=== PATIENT | male | born 1940 | race Caucasian/White ===

== ENCOUNTER 2017-07-23 05:10 | Outpatient (CLI) | payer MEDICARE, OTHER ==
[2017-07-22 10:33] LABS: BASOPHILS 0.2 % (0-2); EOSINOPHILS 1.2 % (0-7); HEMATOCRIT 45.5 % (42.0-54.0); HEMOGLOBIN 15.8 g/dL (13.5-17.5); IMMATURE GRANULOCYTES 0.3 % (0-5); LYMPHOCYTES 13.2 % (15-50); MCH 32.4 pg (26.0-34.0); MCHC 34.7 g/dL (31.0-37.0); MCV 93.4 fL (80.0-100.0); MONOCYTES 5.8 % (2-11); NEUTROPHILS 79.3 % (40-80); PLATELET COUNT 222 10x3/uL (130-400); RBC 4.87 10x6/uL (4.20-6.10); RDW 12.7 % (11.5-14.5); WBC 11.9 10x3/uL (4.8-10.8)
[2017-07-22 10:41] LABS: INR 0.97 (0.85-1.17); PROTIME 12.5 SECONDS (11.6-15.0)
[2017-07-22 10:42] LABS: APTT 29.9 SECONDS (22.8-39.4)
[~2017-07-23] VITALS: Ht 188 cm; Wt 111.1 kg
[~2017-07-23 05:10] MED LIST: ASPIRIN EC81 M1 PO; ATIVAN2 MG PO; BYSTOLIC10 MG PO; CO Q-10100 MG; COZAAR50 MG PO; FLUTICASONE PRO16 GM NASAL; MAGNESIUM OXID250 MG PO; PROBIOTIC BLEN1 EACH PO; PROTONIX40 MG PO; VITAMIN B-122500 MCG PO; VITAMIN D31000 UNI2 PO; ZOCOR20 MG PO
[2017-07-23 06:02] VITALS: BP 129/70; Ht 188 cm; Wt 111.1 kg
== END 2017-07-24 00:01 | disposition home or self-care (01) ==
LOC: D.OPS 05:10 → EDSTATUS 08:00 → D.PAN 08:00 → D.OPS 08:00 → D.PAN 10:25 → D.OPS 07-24 00:01
PROVIDERS: Anesthesiology
DX: M75.40 Impingement syndrome of unspecified shoulder (principal); Z53.09 Procedure and treatment not carried out because of other contraindication; Z01.812 Encounter for preprocedural laboratory examination

== ENCOUNTER 2019-11-21 07:27 | Inpatient (IN) | payer MEDICARE, OTHER ==
[~2019-11-21] VITALS: Ht 188 cm; Wt 114.1 kg
[2019-11-21 07:30] VITALS: BP 128/68
[2019-11-21] MEDS ORDERED: PACERONE200 MG PO (07:39)
[2019-11-21] MEDS ORDERED: PREDNISONE20 MG PO (07:39)
[2019-11-21] MEDS ORDERED: BACTRIM 400-801 TAB PO (07:40)
[2019-11-21] MEDS ORDERED: COLCRYS0.6 MG PO (07:40)
[2019-11-21] MEDS ORDERED: TOPROL XL25 MG PO (07:41)
[2019-11-21 08:13] LABS: ANION GAP 14.7 mmol/L (8-16); CALCIUM 8.4 mg/dL (8.5-10.1); CARBON DIOXIDE 26.6 mmol/L (21.0-32.0); CREATININE - SERUM 1.4 mg/dL (0.6-1.3); POTASSIUM - SERUM 4.3 mmol/L (3.5-5.1)
[2019-11-21 08:14] LABS: APTT 35.6 SECONDS (22.8-39.4); INR 2.21 (0.85-1.17); PROTIME 24.2 SECONDS (11.6-15.0)
[2019-11-21 08:15] LABS: D-DIMER-QUANTITATIVE 0.45 ug/mLFEU (0.20-0.54)
[2019-11-21 08:16] LABS: BASOPHILS 0.1 % (0-2); EOSINOPHILS 1.1 % (0-7); HEMATOCRIT 44.8 % (42.0-54.0); HEMOGLOBIN 14.2 g/dL (13.5-17.5); IMMATURE GRANULOCYTES 0.3 % (0-5); LYMPHOCYTES 7.5 % (15-50); MCHC 31.7 g/dL (31.0-37.0); MCV 94.7 fL (80.0-100.0); MEAN PLATELET VOLUME 9.6 fL (7.4-10.4); MONOCYTES 7.1 % (2-11); NEUTROPHILS 83.9 % (40-80); PLATELET COUNT 188 10x3/uL (130-400); RBC 4.73 10x6/uL (4.20-6.10); RDW 15.5 % (11.5-14.5); WBC 12.9 10x3/uL (4.8-10.8)
[2019-11-21 08:26] LABS: ALBUMIN 3.1 g/dL (3.4-5.0); BILIRUBIN - TOTAL 0.46 mg/dL (0.2-1.3); C-REACTIVE PROTEIN 5.5 mg/dL (0.0-0.9); MAGNESIUM - SERUM 2.2 mg/dL (1.8-2.4); TROPONIN-I 0.031 ng/mL (0.000-0.060)
[2019-11-21 08:30] VITALS: BP 114/65
[2019-11-21 10:00] VITALS: BP 137/59
--- NOTE | 2019-11-21 10:17 | NUR ---
URINE SPECIMEN SENT TO LAB
[2019-11-21 10:32] LABS: BILIRUBIN NEGATIVE (NEGATIVE); KETONE NEGATIVE (NEGATIVE); NITRITE NEGATIVE (NEGATIVE); UROBILINOGEN NORMAL mg/dL (< 2)
[2019-11-21 10:41] LABS: AMORPHOUS SEDIMENT <1+ LPF (NONE SEEN); BACTERIA FEW HPF (NONE SEEN); EPITHELIAL CELLS 0-5 /hpf (0-5); WHITE CELLS - URINE 0-5 HPF (0-1)
--- NOTE | 2019-11-21 11:02 | NUR ---
CHANDNITHROMAX COMPLETED. 250ML IN.
--- NOTE | 2019-11-21 11:45 | NUR ---
PT IS NOT DIABETIC, DID NOT CHECK BLOOD SUGAR
--- NOTE | 2019-11-21 11:51 | NUR ---
ATTEMPT TO CALL REPORT, NURSE WILL CALL BACK
--- NOTE | 2019-11-21 12:12 | NUR ---
NOTIFIED RT OF SYMBICORT ORDER. WILL GIVE ONCE ON THE FLOOR
--- NOTE | 2019-11-21 12:19 | NUR ---
ATTEMPT TO CALL REPORT. ON HOLD 10 MINUTES, WILL TRY AGAIN.
--- NOTE | 2019-11-21 12:33 | NUR ---
REPORT TO ALONSO MALDONADO
[2019-11-21 12:35] LABS: THYROID STIMULATING HORMONE 0.42 uIU/mL (0.36-3.74)
--- NOTE | 2019-11-21 14:00 | NUR ---
SPOKE WITH JENNA DIANE ABOUT FSBS AND PT NOT BEING DIABETIC. SHE STATES BECAUSE PT IS TAKING STEROIDS. I VERBALIZED UNDERSTANDING.
--- NOTE | 2019-11-21 15:36 | NUR ---
PT COVID NEG.
[2019-11-21 16:17] VITALS: BP 117/59
[2019-11-21 16:20] VITALS: BMI 32.3
[2019-11-21 16:43] VITALS: Ht 188 cm; Wt 114.1 kg
--- NOTE | 2019-11-21 21:00 | NUR ---
PT STATES HE HAS TO TAKE OWN MEDS, BECAUSE HE HAS A SCHDULE HE HAS TO FOLLOW, SPOKE WITH FRANTZ AND TOLD HIM
[2019-11-21 23:15] VITALS: BP 102/67
[2019-11-22 03:03] VITALS: BP 90/51
--- NOTE | 2019-11-22 03:28 | NUR ---
I have reviewed this patient and I concur with the Shift Assessment completed by the Licensed Practical Nurse today this shift.
[2019-11-22 05:50] LABS: BASOPHILS 0.1 % (0-2); EOSINOPHILS 0 % (0-7); HEMOGLOBIN 12.7 g/dL (13.5-17.5); IMMATURE GRANULOCYTES 0.3 % (0-5); LYMPHOCYTES 4.6 % (15-50); MCH 30.1 pg (26.0-34.0); MCHC 31.8 g/dL (31.0-37.0); MCV 94.8 fL (80.0-100.0); MEAN PLATELET VOLUME 9.8 fL (7.4-10.4); MONOCYTES 4.4 % (2-11); NEUTROPHILS 90.6 % (40-80); PLATELET COUNT 169 10x3/uL (130-400); RBC 4.22 10x6/uL (4.20-6.10); RDW 15.6 % (11.5-14.5); WBC 13.8 10x3/uL (4.8-10.8)
[2019-11-22 06:11] VITALS: BP 117/73
[2019-11-22 06:28] LABS: ALBUMIN 2.7 g/dL (3.4-5.0); ANION GAP 11.9 mmol/L (8-16); BILIRUBIN - TOTAL 0.24 mg/dL (0.2-1.3); CALCIUM 8.4 mg/dL (8.5-10.1); CREATININE - SERUM 1.4 mg/dL (0.6-1.3); POTASSIUM - SERUM 4.9 mmol/L (3.5-5.1); PROTEIN - SERUM 6.4 g/dL (6.4-8.2)
[2019-11-22 07:00] VITALS: BP 102/65
[2019-11-22 10:30] VITALS: BP 107/70
--- NOTE | 2019-11-22 11:18 | NUR ---
SPOKE WITH DR. WEBSTER ABOUT PATIENT HAVING OWN MEDICATIONS IN ROOM AND TAKING THEM PRESCRIBED BY [facility]. I WAS TOLD THAT IT WAS OK FOR HIM TO BE TAKING HIS OWN MEDICATIONS INSTEAD OF US SENDING THEM TO PHARMACY TO HAVE THEM LABELED.
--- NOTE | 2019-11-22 13:18 | NUR ---
CAME TO CHECK ON PATIENT, HE IS A CURRENT CARDIAC REHAB PATIENT. WILL CONTINUE TO FOLLOW HIS CARE AND PROGRESS TO SEE WHEN PATIENT CAN RETURN TO CARDIAC REHAB.
[2019-11-22 15:00] VITALS: BP 122/75
--- NOTE | 2019-11-22 19:00 | NUR ---
REPORT RECEIVED, WILL CONTINUE POC. PATIENT IS AAOX4, SITTING UP IN CHAIR. NO S/S OF DISTRESS OBSERVED, RR EVEN AND UNLABORED ON ROOM AIR. PIV TO LT AC AND RT FA, BOTH SL. PATIENT DENIES NEEDS AT THIS TIME. CL IN REACH, BED LOCKED AND LOWERED. WILL CTM.
[2019-11-22 20:00] VITALS: BP 127/73
[2019-11-23] VITALS: BP 121/84
[2019-11-23 04:00] VITALS: BP 124/61
[2019-11-23 05:37] LABS: BASOPHILS 0 % (0-2); EOSINOPHILS 0.6 % (0-7); HEMATOCRIT 43.1 % (42.0-54.0); HEMOGLOBIN 13.6 g/dL (13.5-17.5); IMMATURE GRANULOCYTES 0.3 % (0-5); LYMPHOCYTES 3.1 % (15-50); MCH 30.2 pg (26.0-34.0); MCHC 31.6 g/dL (31.0-37.0); MCV 95.6 fL (80.0-100.0); MEAN PLATELET VOLUME 10.3 fL (7.4-10.4); MONOCYTES 4.4 % (2-11); NEUTROPHILS 91.6 % (40-80); PLATELET COUNT 187 10x3/uL (130-400); RBC 4.51 10x6/uL (4.20-6.10); RDW 15.7 % (11.5-14.5); WBC 15.8 10x3/uL (4.8-10.8)
[2019-11-23 06:20] LABS: ALBUMIN 2.8 g/dL (3.4-5.0); ANION GAP 12.5 mmol/L (8-16); BILIRUBIN - TOTAL 0.4 mg/dL (0.2-1.3); CALCIUM 8.3 mg/dL (8.5-10.1); CARBON DIOXIDE 26.9 mmol/L (21.0-32.0); CREATININE - SERUM 1.2 mg/dL (0.6-1.3); POTASSIUM - SERUM 4.4 mmol/L (3.5-5.1); PROTEIN - SERUM 6.9 g/dL (6.4-8.2)
--- NOTE | 2019-11-23 07:15 | NUR ---
RECEIVE SHIFT REPORT. SITTING IN CHAIR WITH MULTIPLE BLANKETS SHIVERING AND COUGHING. GAVE WARM BLANKETS AND AN INCENTIVE SPIROMETER TO USE INSTRUCTED. STATES HE WOULD REALLY LIKE TO GO HOME TODAY. WILL CONTINUE PLAN OF CARE AND SAFETY PRECAUTIONS.
[2019-11-23 07:29] VITALS: BP 133/70
[2019-11-23 12:21] VITALS: BP 95/46
[2019-11-23 15:55] VITALS: BP 119/68
--- NOTE | 2019-11-23 16:58 | MORECARE ---
CASE MANAGEMENT DISCHARGE SUMMARY PATIENT: ALDO RICHARD JR UNIT: [id number] ADM DATE: 11/21/19 AGE: 79 : 41 SEX: M ROOM/BED: D.2113 AUTHOR: MAYRA ENCARNACION PHYSICIAN: REFERRING PHYSICIAN: MATILDE CELIS MD DATE OF SERVICE: 11/23/19 Discharge Plan Patient Name: ALDO RICHARD [facility] [facility] 1940 Planned Disposition: Home Anticipated Discharge Date: Discharge Date: Expected LOS: Initial Reviewer: [email or web address] Initial Review Date: 11/23/2019 Generated: 11/23/19 5:58 pm Coverage Notice Reviewer: [id number] - Faith Clements Notice Issued Date-Time: 11/23/2019 16:55 Notice Type: IM Discharge Notice Notice Delivered To: Patient Relationship to Patient: Self Senior Tax Manager Name: Delivery Method: HAND - Hand Delivered Alexia Days: Prior Verbal Notification: Recipient Understood Notice: Yes Recipient Signature: Yes Med Rec Note Co-signed by Attending: Coverage Notice Comment: IMM explained, signed, given, copy placed in MR Patient Name: ALDO RICHARD Page [phone] at 1658 All edits/amendments must be made on the electronic document DICTATION DATE: 11/23/191657 SHELL SIEVE OPERATOR: LEÓN 11/23/191657 RPT#: [id number] DC DATE: STATUS: ADM IN [facility] [address] [place] [address] END OF REPORT
--- NOTE | 2019-11-23 17:06 | MORECARE ---
CASE MANAGEMENT DISCHARGE SUMMARY PATIENT: ALDO RICHARD UNIT: [id number] ADM DATE: 11/21/19 AGE: 79 : 41 SEX: M ROOM/BED: D.2603 AUTHOR: SHASHANKDOC PHYSICIAN: REFERRING PHYSICIAN: MATILDE CELIS MD DATE OF SERVICE: 11/23/19 Discharge Plan Patient Name: ALDO RICHARD Facility: [facility]:[place] : 1940 Planned Disposition: Home Anticipated Discharge Date: Discharge Date: Expected LOS: Initial Reviewer: [email or web address] Initial Review Date: 11/23/2019 Generated: 11/23/19 6:05 pm Comments DCP- Discharge Planning Updated by [email or web address]: Faith Clements on 11/23/19 4:[address] Patient Name: ALDO RICHARD Admission Status: ER Accout number: [id number] Admission Date: 11-21-2019 : 1940 Admission Diagnosis:SHORTNESS OF BREATH Attending: MATILDE CELIS Current LOS: 2 Anticipated DC Date: Planned Disposition: Home Primary Insurance: MEDICARE A & B Discharge Planning Comments: CM met with patient to complete initial dc planning assessment. CM educated patient on the CM role and verbal consent given by patient to complete assessment. CM verified patient's address, phone number, and emergency contact phone numbers. Patient lives at home with his spouse. At discharge patient plans to return and feels this is a safe discharge. CM discussed availability of home health, rehab services, and medical equipment. Patient denied known discharge needs at this time. Transportation provider at discharge will be his spouse. States he does cardiac rehab at [facility] three times a week. He will need to resume this when cleared by cardiology. CM will continue to follow and will assist as needed with dc plans/needs. Bus And Sys Integration Senior Manager: Faith Clements DCPIA - Discharge Planning Initial Assessment Updated by [email or web address]: Faith Clements on 11/23/19 4:59 pm * Is the patient Alert and Oriented? Yes * How many steps to enter\exit or inside your home? 0/1 flight * PCP Dr. Yo Ryan * Pharmacy [facility] * Preadmission Environment Home with Family * ADLs Independent * Equipment Cane * List name and contact numbers for known caregivers / representatives who currently or will assist patient after discharge: Rachelle Richard - [phone] * Verbal permission to speak to the caregivers and representatives has been obtained from the patient. Yes * Community resources currently utilized Other * Please name any agencies selected above. Cardiac Rehab at [facility] * Additional services required to return to the preadmission environment? No * Can the patient safely return to the preadmission environment? Yes * Has this patient been hospitalized within the prior 30 days at any hospital? Yes Coverage Notice Reviewer: [email or web address] Sheila Clements Notice Issued Date-Time: 11/23/2019 16:55 Notice Type: IM Discharge Notice Notice Delivered To: Patient Relationship to Patient: Self Feed Inspection Supervisor Name: Delivery Method: HAND - Hand Delivered Alexia Days: Prior Verbal Notification: Recipient Understood Notice: Yes Recipient Signature: Yes Med Rec Note Co-signed by Attending: Coverage Notice Comment: IMM explained, signed, given, copy placed in MR Last DP export: 11/23/19 3:58 Patient Name: ALDO RICHARD Page [phone] at 1706 All edits/amendments must be made on the electronic document DICTATION DATE: 11/23/191704 ORTHODONTIST: LEÓN 11/23/191704 RPT#: [id number] DC DATE: STATUS: ADM IN [facility] [address] [place] [address] END OF REPORT
--- NOTE | 2019-11-23 19:00 | NUR ---
REPORT RECEIVED, WILL CONTINUE POC. PATIENT IS AAOX4, SITTING UP IN CHAIR. NO S/S OF DISTRESS OBSERVED, RR EVEN AND UNLABORED ON ROOM AIR. PATIENT DENIES NEEDS AT THIS TIME. CL IN REACH, BED LOCKED AND LOWERED. WILL CTM.
[2019-11-23 20:00] VITALS: BP 123/66
[2019-11-24 06:19] LABS: BASOPHILS 0 % (0-2); EOSINOPHILS 1.4 % (0-7); HEMATOCRIT 43.6 % (42.0-54.0); HEMOGLOBIN 13.6 g/dL (13.5-17.5); IMMATURE GRANULOCYTES 0.3 % (0-5); LYMPHOCYTES 7.2 % (15-50); MCHC 31.2 g/dL (31.0-37.0); MEAN PLATELET VOLUME 10.2 fL (7.4-10.4); MONOCYTES 3.2 % (2-11); NEUTROPHILS 87.9 % (40-80); PLATELET COUNT 177 10x3/uL (130-400); RBC 4.54 10x6/uL (4.20-6.10); WBC 12.2 10x3/uL (4.8-10.8)
--- NOTE | 2019-11-24 06:35 | NUR ---
PATIENT ON CL C/O SOB AND WHEEZING, RT CALLED AND SAID HE WOULD BE THEIR FIRST STOP THEN PATIENTS , [facility] CALLED AND SAID SHE RECEIVED A TEXT FROM PATIENT STATING HE WAS HAVING A HARD TIME. WENT TO CHECK ON PATIENT AND HE WAS IN THE BATHROOM AND HAD ACCIDENT ON THE FLOOR AND WAS SOB. CALLED RT AGAIN FOR PATIENT AND SHADOW GRAPH WEIGHT OPERATOR CLEANING UP PATIENT TO PUT HIM IN BED THE TUBING FOR A BREATHING TX WILL NOT REACH INTO THE BATHROOM.
[2019-11-24 06:59] LABS: ALBUMIN 2.9 g/dL (3.4-5.0); ANION GAP 11.8 mmol/L (8-16); BILIRUBIN - TOTAL 0.65 mg/dL (0.2-1.3); CALCIUM 8.4 mg/dL (8.5-10.1); CARBON DIOXIDE 28.6 mmol/L (21.0-32.0); CREATININE - SERUM 1.2 mg/dL (0.6-1.3); POTASSIUM - SERUM 4.4 mmol/L (3.5-5.1); PROTEIN - SERUM 7.2 g/dL (6.4-8.2)
[2019-11-24 07:00] VITALS: BP 132/63
--- NOTE | 2019-11-24 08:00 | NUR ---
0700-PT SITTING UP IN CHAIR, SOB, 02SAT 90-92% ON RA, HR 136, TEMP 103.0 ORAL--02@2L/NC PLACED ON PT--TYLENOL ADMINISTERED/ORDER FOR TEMP. PT HAS ORDERS TO TAKE HOME MEDICATIONS--ALL HOME MEDS ARE LOCATED AT PT'S BEDSIDE. ICE WATER BROUGHT TO ROOM/REQUEST. PT DENIES ANY FURTHER NEEDS AT THIS TIME, WILL CONTINUE TO MONITOR.
--- NOTE | 2019-11-24 15:25 | NUR ---
0900-AM MEDS ADMINISTERED/ORDER, PT TOLERATED ALL WELL. REQUEST A SHOWER 1100-PLACED PT IN SHOWER, BED LINENS CHANGED ALL NEEDS MET 1300-SITTING UP IN CHAIR AT BEDSIDE, NO DISTRESS NOTED. 1500-CONTINUES TO SIT UP IN CHAIR REQUEST ALL INFORMATION (ENTIRE RECORD) FROM CHART BE FAXED TO [facility] [phone]
[2019-11-24 15:47] LABS: BILIRUBIN NEGATIVE (NEGATIVE); KETONE NEGATIVE (NEGATIVE); NITRITE NEGATIVE (NEGATIVE); UROBILINOGEN NORMAL mg/dL (< 2)
[2019-11-24 15:48] LABS: EPITHELIAL CELLS NSEEN /hpf (0-5); WHITE CELLS - URINE 0-5 HPF (0-1)
[2019-11-24 15:49] LABS: BACTERIA NONE SEEN HPF (NONE SEEN)
[2019-11-24 16:00] VITALS: BP 125/54
--- NOTE | 2019-11-24 18:29 | NUR ---
1055--02 REMOVED, PT NO LONGER SOB, 02SAT WNL, CONTINUE TO MONITOR.
[2019-11-24 20:00] VITALS: BP 117/70
--- NOTE | 2019-11-24 20:12 | NUR ---
REPORT RECIEVED AND ROUNDING COMPLETE. PATIENT SITTING UP IN HIS RECLINER, STATES IT IS EASIER TO BREATH WHEN HE IS SITTING UP. STATES HE FEELS BETTER THIS EVENING THEN HE DID IN THE MORNING. REQUESTED A TALL GLASS OF ICE WATER WHICH HE RECIEVED. RIGHT AC AND LEFT FOREARM PIV'S SLAINE LOCKED AT THIS TIME. NO DISTRESS NOTED, CALL LIGHT WITHIN REACH AND BED IN LOWEST LOCKED POSITION.
--- NOTE | 2019-11-24 23:57 | NUR ---
A&O X 4. PT REPORTS NON PRODUCTIVE COUGH WITH WHEEZING. REPORTS RELIEF AFTER PASSING BMs, BUT STATES BM HAVE BEEN LOOSE AND SOME INCONTINENCE DUE TO URGENCY. TEMP 99.6F ORALLY. CTM.
[2019-11-25 04:00] VITALS: BP 117/76
[2019-11-25 06:02] LABS: BASOPHILS 0.1 % (0-2); EOSINOPHILS 2.1 % (0-7); HEMATOCRIT 39.3 % (42.0-54.0); HEMOGLOBIN 12.5 g/dL (13.5-17.5); IMMATURE GRANULOCYTES 0.4 % (0-5); MCH 29.8 pg (26.0-34.0); MCHC 31.8 g/dL (31.0-37.0); MEAN PLATELET VOLUME 10.1 fL (7.4-10.4); MONOCYTES 4.8 % (2-11); NEUTROPHILS 83.6 % (40-80); PLATELET COUNT 162 10x3/uL (130-400); RDW 15.5 % (11.5-14.5); WBC 10.5 10x3/uL (4.8-10.8)
[2019-11-25 06:17] LABS: INR 2.21 (0.85-1.17); MCV 93.6 fL (80.0-100.0); PROTIME 24.2 SECONDS (11.6-15.0)
[2019-11-25 06:36] LABS: ALBUMIN 2.5 g/dL (3.4-5.0); ANION GAP 13.4 mmol/L (8-16); BILIRUBIN - TOTAL 0.86 mg/dL (0.2-1.3); CALCIUM 7.7 mg/dL (8.5-10.1); CARBON DIOXIDE 25.2 mmol/L (21.0-32.0); CREATININE - SERUM 1.3 mg/dL (0.6-1.3); POTASSIUM - SERUM 4.6 mmol/L (3.5-5.1); PROTEIN - SERUM 6.1 g/dL (6.4-8.2)
--- NOTE | 2019-11-25 07:16 | NUR ---
0702-SITTING UP IN CHAIR AT BEDSIDE AWAKE, ALERT, WATCHING TV. RESP EVEN AND UNLABORED ON RA. NO DISTRESS NOTED. DENIES ANY NEEDS.
--- NOTE | 2019-11-25 08:03 | NUR ---
Will continue to keep patient on hold from outpatient cardiac rehab until ok'd to return to Cardiac Rehab. Will continue to follow patient progress of patient.
[2019-11-25] MEDS ORDERED: ZITHROMAX 500M500 MG PO (09:36)
[2019-11-25] MEDS ORDERED: ALBUTEROL2.5 MG/3 M INH (09:37)
[2019-11-25] MEDS ORDERED: OMNICEF300 MG PO (09:37)
[2019-11-25] MEDS ORDERED: MUCINEX600 MG PO (09:38)
[2019-11-25] MEDS ORDERED: MUCINEX DM ER1 EAC1 PO (09:38)
[2019-11-25] MEDS ORDERED: SINGULAIR10 MG PO (09:38)
[2019-11-25] MEDS ORDERED: SYMBICORT 16010.2 GM INH (09:38)
[2019-11-25] MEDS ORDERED: TESSALON PERLE100 MG PO (09:38)
[2019-11-25] MEDS ORDERED: Coumadin [PBKC] PO (09:39)
[2019-11-25] MEDS ORDERED: FLORAJEN3 CAPS460 MG PO (09:39)
--- NOTE | 2019-11-25 11:47 | NUR ---
0900-PT TAKES ALL HOME MEDICATIONS/ORDER THE MEDS ARE LOCATED AT PT'S BEDSIDE. PT DENIES ANY NEEDS FROM THE NURSE. NO DISTRESS NOTED. 1100-PT AWAITING DC. HEAD OF DESIGN HAS BEEN REMOVED. MOF AT BEDSIDE.
--- NOTE | 2019-11-25 12:18 | NUR ---
1021-SPOKE TO DR ALEMAN REGARDING PT'S DC HOME--DR ALEMAN STATES IT IS OK TO DC THIS PT HOME-DR WEBSTER ENTERED THE ORIGINAL DC ORDER--DR WEBSTER IS SITTING AT [facility] AND NOTIFIED/THIS NURSE THAT DR ALEMAN AGREES TO DC OF PT. V.O. TO SEND PT HOME ON SYMBICORT INH 2 PUFFS BID--THIS WILL BE ADDED TO PT'S DC PAPERWORK.
--- NOTE | 2019-11-25 12:27 | NUR ---
IV REMOVED FROM LEFT AC AND RT FA AT THIS TIME, BOTH CATHS ARE INTACT, BANDAGES APPLIED. NURSE TELLS PT THAT DC PAPERWORK IS ALMOST COMPLETE AND HE CAN GET UP AND DRESSED AND GET ALL THINGS TOGETHER W/UNDERSTANDING STATED TO ALL. MOF AT BEDSIDE. NO DISTRESS NOTED.
--- NOTE | 2019-11-25 12:44 | NUR ---
ALL DC PAPERWORK VERBALLY EXPLAINED AND GIVEN TO PT--PT STATES UNDERSTANDING TO ALL. PT EXITED HOSPITAL IN [facility]/WHEELCHAIR--MOF TOOK ALL PT'S BELONGINGS OUT--
--- NOTE | 2019-11-28 09:27 | MORECARE ---
CASE MANAGEMENT DISCHARGE SUMMARY PATIENT: ALDO RICHARD UNIT: [id number] ADM DATE: 11/21/19 AGE: 79 : 41 SEX: M ROOM/BED: D.2677 AUTHOR: MAYRA ENCARNACION PHYSICIAN: REFERRING PHYSICIAN: MATILDE CELIS MD DATE OF SERVICE: 11/28/19 Discharge Plan Patient Name: ALDO RICHARD Facility: [facility]:[place] : 1940 Planned Disposition: Home Anticipated Discharge Date: Discharge Date: 11/25/2019 Expected LOS: Initial Reviewer: [email or web address] Initial Review Date: 11/23/2019 Generated: 11/28/19 10:26 am Comments DCP- Discharge Planning Updated by [email or web address]: Faith Clements on 11/23/19 4:[address] Patient Name: ALDO RICHARD Admission Status: ER Accout number: [id number] Admission Date: 11-21-2019 : 1940 Admission Diagnosis:SHORTNESS OF BREATH Attending: MATILDE CELIS Current LOS: 2 Anticipated DC Date: Planned Disposition: Home Primary Insurance: MEDICARE A & B Discharge Planning Comments: CM met with patient to complete initial dc planning assessment. CM educated patient on the CM role and verbal consent given by patient to complete assessment. CM verified patient's address, phone number, and emergency contact phone numbers. Patient lives at home with his spouse. At discharge patient plans to return and feels this is a safe discharge. CM discussed availability of home health, rehab services, and medical equipment. Patient denied known discharge needs at this time. Transportation provider at discharge will be his spouse. States he does cardiac rehab at [facility] three times a week. He will need to resume this when cleared by cardiology. CM will continue to follow and will assist as needed with dc plans/needs. Agency Service Coordinator: Faith Clements DCPIA - Discharge Planning Initial Assessment Updated by [email or web address]: Faith Clements on 11/23/19 4:59 pm * Is the patient Alert and Oriented? Yes * How many steps to enter\exit or inside your home? 0/1 flight * PCP Dr. Yo Ryan * Pharmacy [facility] * Preadmission Environment Home with Family * ADLs Independent * Equipment Cane * List name and contact numbers for known caregivers / representatives who currently or will assist patient after discharge: Rachelle Richard - [phone] * Verbal permission to speak to the caregivers and representatives has been obtained from the patient. Yes * Community resources currently utilized Other * Please name any agencies selected above. Cardiac Rehab at [facility] * Additional services required to return to the preadmission environment? No * Can the patient safely return to the preadmission environment? Yes * Has this patient been hospitalized within the prior 30 days at any hospital? Yes Coverage Notice Reviewer: [email or web address] Sheila Clements Notice Issued Date-Time: 11/23/2019 16:55 Notice Type: IM Discharge Notice Notice Delivered To: Patient Relationship to Patient: Self Accelerator Systems Director Name: Delivery Method: HAND - Hand Delivered Alexia Days: Prior Verbal Notification: Recipient Understood Notice: Yes Recipient Signature: Yes Med Rec Note Co-signed by Attending: Coverage Notice Comment: IMM explained, signed, given, copy placed in MR Last DP export: 11/23/19 4:06 Patient Name: ALDO RICHARD Page [phone] at 0927 All edits/amendments must be made on the electronic document DICTATION DATE: 11/28/19926 COKE HANDLING SUPERVISOR: LEÓN 11/28/19926 RPT#: [id number] DC DATE:11/25/19 STATUS: DIS IN [facility] [address] [place] [address] END OF REPORT
[2019-11-28 10:08] LABS: ANA REFLEX - DIRECT Negative (Negative)
[2019-11-28 18:07] LABS: IMMUNOGLOBULIN E 568 IU/mL (6-495)
== END 2019-11-25 12:48 | disposition home or self-care (01) | DRG 193 ==
LOC: D.ER 07:27 → D.M2 09:29
PROVIDERS: Emergency Medicine; Family Medicine; Internal Medicine Pulmonary Disease; ADMIT Family Medicine; ATTEND Family Medicine
DX: J18.9 Pneumonia, unspecified organism (principal); I40.9 Acute myocarditis, unspecified; J44.0 Chronic obstructive pulmonary disease with (acute) lower respiratory infection; J98.11 Atelectasis; N17.9 Acute kidney failure, unspecified; I48.92 Unspecified atrial flutter; I48.91 Unspecified atrial fibrillation; F41.9 Anxiety disorder, unspecified; I11.0 Hypertensive heart disease with heart failure; K57.90 Diverticulosis of intestine, part unspecified, without perforation or abscess without bleeding; Z95.2 Presence of prosthetic heart valve; Z95.0 Presence of cardiac pacemaker

== ENCOUNTER 2020-06-10 18:23 | Emergency (ER) | payer MEDICARE, OTHER ==
[~2020-06-10] VITALS: Ht 188 cm; Wt 117.3 kg
[~2020-06-10 18:23] MED LIST changes: +ALBUTEROL2.5 MG/3 M INH; +BACTRIM 400-801 TAB PO; +COLCRYS0.6 MG PO; +Coumadin [PBKC] PO; +FLORAJEN3 CAPS460 MG PO; +MUCINEX DM ER1 EAC1 PO; +MUCINEX600 MG PO; +OMNICEF300 MG PO; +PACERONE200 MG PO; +PREDNISONE20 MG PO; +SINGULAIR10 MG PO; +SYMBICORT 16010.2 GM INH; +TESSALON PERLE100 MG PO; +TOPROL XL25 MG PO; +ZITHROMAX 500M500 MG PO
[2020-06-10 18:28] VITALS: Ht 188 cm; Wt 117.3 kg
[2020-06-10 19:09] LABS: APTT 37.7 SECONDS (22.8-39.4); BASOPHILS 0.1 % (0-2); HEMATOCRIT 49.7 % (42.0-54.0); HEMOGLOBIN 16.5 g/dL (13.5-17.5); IMMATURE GRANULOCYTES 0.3 % (0-5); INR 1.87 (0.85-1.17); LYMPHOCYTE ABS# 1.11 10x3/uL (1.32-3.57); LYMPHOCYTES 9.8 % (15-50); MCH 30.7 pg (26.0-34.0); MCHC 33.2 g/dL (31.0-37.0); MCV 92.6 fL (80.0-100.0); MEAN PLATELET VOLUME 9.9 fL (7.4-10.4); MONOCYTES 7.3 % (2-11); NEUTROPHIL ABS# 9.23 10x3/uL (1.78-5.38); NEUTROPHILS 81.5 % (40-80); PLATELET COUNT 188 10x3/uL (130-400); RBC 5.37 10x6/uL (4.20-6.10); WBC 11.3 10x3/uL (4.8-10.8)
[2020-06-10 19:11] LABS: CALC OSMOLALITY 278 mosm/kg (275-300); CALCIUM 8.1 mg/dL (8.5-10.1); CARBON DIOXIDE 27.2 mmol/L (21.0-32.0); CHLORIDE - SERUM 102 mmol/L (98-107); CREATININE - SERUM 1.2 mg/dL (0.6-1.3); GLUCOSE 109 mg/dL (74-106); POTASSIUM - SERUM 4.2 mmol/L (3.5-5.1); SODIUM 136 mmol/L (136-145); UREA NITROGEN 29 mg/dL (7-18); eGFR NON AFRICAN AMERICAN 62 mL/min (90-120)
[2020-06-10 19:25] LABS: ALBUMIN 2.9 g/dL (3.4-5.0); ALKALINE PHOSPHATASE 51 U/L (30-120); ALT (SGPT) 51 U/L (10-68); BILIRUBIN - TOTAL 0.47 mg/dL (0.2-1.3); CKMB 0.8 U/L (0.0-3.6); CREATINE KINASE 66 UL (21-232); PRO BNP 617 pg/mL (0-450); PROTEIN - SERUM 6.9 g/dL (6.4-8.2)
[2020-06-10 19:27] LABS: TROPONIN-I < 0.017 ng/mL (0.000-0.060)
[2020-06-10] MEDS ORDERED: AUGMENTIN 875-11 TAB PO (20:53)
[2020-06-10] MEDS ORDERED: STERAPRED DS 1010 MG PO (20:53)
[2020-06-10 21:25] VITALS: BP 135/75
== END 2020-06-10 21:25 | disposition home or self-care (01) ==
LOC: D.ER 18:23
PROVIDERS: Family Medicine
DX: J01.90 Acute sinusitis, unspecified (principal); K21.9 Gastro-esophageal reflux disease without esophagitis